=== PATIENT | male | born 1950 | race Hispanic/Latino ===

== ENCOUNTER 2018-09-16 18:27 | Inpatient (IN) | payer MEDICARE, BC ==
[2018-09-16 18:28] VITALS: BMI 28.1
--- NOTE | 2018-09-16 19:06 | C.PDOC ---
History Of Present Illness Patient is a 68 year old male, with a hx of COPD, HTN, HLD, and cardiac disease, who presents to the ED requesting alcohol detox. Patient states that he typically drinks anywhere from a pint to a pint and half a day with some beers. Last drink in cab ride on way over to ED. He states that when he was in detox last fall, but is now drinking heavy again. Patient reports that he sees a doctor regularly. Denies any SI/HI or hallucinations. Time Seen by Provider: 09/16/18 18:45 Chief Complaint (Nursing): Substance Abuse History Per: Patient History/Exam Limitations: no limitations Suicide/Self Injury Attempted (Context): None Modifying Factor(s): Alcohol Associated Symptoms: denies: Suicidal Thoughts, Suicidal Plan Recent travel outside of the [place]: No Additional History Per: Patient Past Medical History Reviewed: Historical Data, Nursing Documentation, Vital Signs Vital Signs: Last Vital Signs Temp 97.4 F L 09/16/18 18:38 Pulse 69 09/16/18 18:38 Resp 18 09/16/18 18:38 BP 133/80 09/16/18 18:38 Pulse Ox 96 09/16/18 18:38 Primary Care Provider: FAMILY PROVIDER,NO - Medical History PMH: Asthma, Bronchitis, COPD, Fractures (L ANKLE FX), HTN, Hypercholesterolemia, Pneumonia, Post Traumatic Stress Disorder, Sleep Apnea (not using CPAP/BIPAP) Denies: [place]'s Disease, Anxiety, Bipolar Disorder, Depression, Personality Disorder, Chronic Kidney Disease, Schizophrenia Surgical History: Appendectomy, Tonsillectomy Denies: Pacemaker - [facility] Procedures ALCOHOL DETOXIFICATION (06/06/06) CONTR CEREBR ARTERIOGRAM (09/21/04) CORONAR ARTERIOGR-2 CATH (08/03/03) ETHMOIDECTOMY (09/16/12) FRONTAL SINUSOTOMY (09/16/12) INJECT ANTIBIOTIC (09/27/04) INJECT/INFUSE NEC (01/13/15) INTRANAS LES DESTRUCTION (09/16/12) INTRANASAL ANTROTOMY (09/16/12) INTRODUCE OF OTH THERAP SUBST INTO RESP TRACT, VIA OPENING (04/12/18) LEFT HEART CARDIAC CATH (08/03/03) LT HEART ANGIOCARDIOGRAM (08/03/03) MAGNETIC RESONANCE IMAGING OF BRAIN AND BRAIN STEM (09/21/04) NEBULIZER THERAPY (09/16/12) SPHENOIDECTOMY (09/16/12) SPHENOIDOTOMY (05/25/03) Family History: States: No Known Family Hx - Social History Hx Tobacco Use: No Hx Alcohol Use: Yes Hx Substance Use: No - Immunization History Hx Tetanus Toxoid Vaccination: No Hx Influenza Vaccination: No Hx Pneumococcal Vaccination: No Review Of Systems Constitutional: Negative for: Fever, Chills Cardiovascular: Negative for: Chest Pain Respiratory: Negative for: Shortness of Breath Psych: Negative for: Suicidal ideation, Other (HI or hallucinations ) Physical Exam - Physical Exam Appears: Non-toxic, No Acute Distress Skin: Warm, Dry Head: Atraumatic, Normacephalic Oral Mucosa: Moist Neck: Normal ROM, Supple Chest: Symmetrical, No Deformity Cardiovascular: Rhythm Regular, No Murmur Respiratory: Normal Breath Sounds, No Rales, No Rhonchi, No Wheezing Gastrointestinal/Abdominal: Soft, No Tenderness Neurological/Psych: Oriented x3 ED Course And Treatment - Laboratory Results Result Diagrams: 09/16/18 19:17 09/16/18 19:17 Lab Interpretation: No Acute Changes O2 Sat by Pulse Oximetry: 96 (on RA ) Pulse Ox Interpretation: Normal Progress Note: Patient is medically cleared for detox admission. Medical Decision Making Medical Decision Making: Plan: Labs UA Disposition - Disposition Disposition: HOSPITALIZED Disposition Time: 21:57 Condition: STABLE - POA Present On Arrival: None - Clinical Impression Clinical Impression: Alcohol dependence - Scribe Statement The provider has reviewed the documentation as recorded by the Jacinda Edmondson All medical record entries made by the Gabbieibjeet were at my direction and personally dictated by me. I have reviewed the chart and agree that the record accurately reflects my personal performance of the history, physical exam, medical decision making, and the department course for this patient. I have also personally directed, reviewed, and agree with the discharge instructions and disposition.
[2018-09-16 19:21] LABS: BASO # 0.1 K/uL (0.0-0.2); BASO % 1.1 % (0.0-2.0); EOS # 0.2 K/uL (0.0-0.7); EOS % 4.1 % (0.0-4.0); LYMPH # 1.6 K/uL (1.0-4.3); LYMPH % 29.3 % (20.0-40.0); MEAN CELL VOLUME 94.5 fL (80.0-94.0); MEAN CORPUSCULAR HEMOGLOBIN 32.3 pg (27.0-31.0); MEAN CORPUSCULAR HGB CONC 34.2 g/dL (33.0-37.0); MEAN PLATELET VOLUME 8.3 fL (7.2-11.7); MONO # 0.4 K/uL (0.0-0.8); MONO % 6.8 % (0.0-10.0); NEUT # 3.2 K/uL (1.8-7.0); NEUT % 58.7 % (50.0-75.0); RBC 4.64 Mil/uL (4.40-5.90); RED CELL DISTRIBUTION WIDTH 15.3 % (11.5-14.5); WHITE BLOOD COUNT 5.5 K/uL (4.8-10.8)
[2018-09-16 19:40] LABS: ALB/GLOB RATIO 1.5 (1.0-2.1); ALBUMIN 4.5 g/dL (3.5-5.0); ALT/SGPT 37 U/L (21-72); AST/SGOT 37 U/L (17-59); BLOOD UREA NITROGEN 17 mg/dL (9-20); CALCIUM 9.1 mg/dl (8.6-10.4); GFR NON-AFRICAN AMERICAN > 60
[2018-09-16 20:10] LABS: SQUAMOUS EPITHIAL < 1 /hpf (0-5); URINE BACTERIA RARE (<OCC); URINE BILIRUBIN NEGATIVE (NEGATIVE); URINE BLOOD TRACE (NEGATIVE); URINE CLARITY Clear (Clear); URINE COLOR Yellow (YELLOW); URINE GLUCOSE (UA) NORMAL (Normal); URINE LEUKOCYTE ESTERASE NEG Leu/uL (Negative); URINE PROTEIN NEGATIVE (NEGATIVE); URINE UROBILINOGEN NORMAL mg/dL (0.2-1.0)
[2018-09-16 20:25] LABS: BARBITURATES, UR NEGATIVE (NEGATIVE); BENZODIAZEPINES, UR NEGATIVE (NEGATIVE); OPIATES, UR NEGATIVE (NEGATIVE); PHENCYCLIDINE, UR NEGATIVE (NEGATIVE)
--- NOTE | 2018-09-16 22:38 | PCM.BM ---
<Davonte Mendoza - Last Filed: 09/16/18 22:36> Treatment Plan Problems - Problems identified on initial assessmt knowledge deficit:alcohol use Date Initiated: 09/16/18 Time Initiated: 22:36 Assessment reference: NA Status: Active denial Date Initiated: 09/16/18 Time Initiated: 22:37 Assessment reference: NA Status: Active defensive coping Date Initiated: 09/16/18 Time Initiated: 22:38 Assessment reference: NA Status: Active Treatment assets and liabiliti Patient Assests: cooperative, cognitively intact Patient Liabilities: substance abuse, medical problems - Milieu Protocol Maintain good personal hygiene: daily Encourage regular showers, daily Remind patient to perform daily oral care, daily Assist patient to perform ADL's Conduct patient checks and document Observation sheet: Q15 minutes Maintain personal safety: every shift Educate patient to report safety concerns to staff, every shift Monitor environment for contraband/sharps Medication safety: Monitor for expected outcome, potential side effects: every shift, Assess barriers to learning: every shift, Assess readiness for medication education: every shift <Geovanny Dong - Last Filed: 09/17/18 12:53> - Diagnosis (1) Alcohol dependence Status: Acute Interventions: 09/17/18 12:53 * Assess 7x/week regarding severity of withdrawal * Educate regarding risks, benefits, side effects and alternatives of medications * Use Motivational Interviewing for abstinence * Use CBT for relapse prevention * Medication management for withdrawal symptoms * Encourage medication assisted treatment *
--- NOTE | 2018-09-17 10:16 | PCM.PSYCH ---
Initial Psychiatric Evaluation - Initial Psychiatric Evaluation Type of Admission: Voluntary Legal Status: Capacity Chief Complaint (in patient's own words): "I am anxious" History of Present Illness and Precipitating Events: Patient is a 68 year-old, male, who is with 5 children. He lives in [place] with his and 17 y/o son. 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 He presents to [facility] to detox from alcohol. He admits to drinking 1 quart of vodka and 2-3 beer per day for the past 30 years. He states that he started drinking around the age of 13 but started drinking heavily in his 40s. He denies use of any illicit or prescribed substances. He is a former smoker, quit in 1999. He has been to detox 4 times, most recently in [place], [place], three months ago. He had been sober for around 10 weeks following detox, but relapsed 2 weeks ago due to issues at home with his son, who is autistic. He also completed a 28-day rehab program in [place] approximately one year ago. His longest length of sobriety was for 2 years from [id number]. He denies any history of seizure but admits to blackouts and tremors. He admits to depressed mood and anxiety, and denies suicidal ideation. He is currently experiencing tremors and nausea, CIWA>12 Past Psychiatric History: depression (undiagnosed) Family Psych History: Dad with alcohol use d/o Past Medical History: HTN, COPD, hyperlipidemia Past Surgical History: denies Current Medications: Active Medications Generic Name Dose Route Start Last Admin Trade Name Freq PRN Reason Stop Dose Admin Hydroxyzine HCl 25 mg 09/16/18 23:41 09/16/18 23:51 Atarax PO 25 mg Q6H PRN Administration Anxiety Pneumococcal Polyvalent Vaccine 0.5 ml 09/20/18 10:00 Pneumovax 23 Vaccine IM 09/20/18 10:01 .ONCE ONE Trazodone HCl 50 mg 09/16/18 23:41 09/16/18 23:51 Desyrel PO 50 mg HS PRN Administration Insomnia Past Psychiatric History - Past Psychiatric History Previous Treatment History: None Pertinent Medical Hx (Current Medical&Sleep Prob, Allergies): Allergies Allergy/AdvReac Type Severity Reaction Status Date / Time methylprednisolone AdvReac Severe ITCHING Verified 04/12/18 23:33 [From Solu-Medrol] aspirin AdvReac COUGH Verified 03/19/17 15:14 ibuprofen [From Motrin] AdvReac COUGH Verified 03/19/17 15:14 Albuterol 0.083% [Albuterol Sulfate 3 Ml] 3 ml IH Q6 PRN 03/19/17 Atorvastatin [Lipitor] 40 mg PO DAILY 03/19/17 Metoprolol Succinate XL [Toprol XL] 25 mg PO DAILY 03/19/17 amLODIPine [Norvasc] 10 mg PO DAILY 03/19/17 Aclidinium Leeper [Tudorza Pressair] 400 mcg IH DAILY 09/16/18 Fluticasone/Vilanterol 100/25 [Breo Ellipta 100-25 MCG INH] 1 puff INH DAILY 09/16/18 Review of Systems - Psychiatric Psychiatric: Abnormal Sleep Pattern, Anhedonia, Anxiety, Depression, Difficulty Concentrating. absent: Hallucinations, Homicidal Ideation, Suicidal Ideation Mental Status Examination - Personal Presentation Personal Presentation: Looks stated age - Affect Affect: Constricted - Motor Activity Motor Activity: Calm - Reliability in Providing Information Reliability in Providing Information: Good - Speech Speech: Organized - Mood Mood: Depressed, Anxious - Formal Thought Process Formal Thought Process: No Impairment - Cognitive Functions Orientation: Person, Place, Situation, Time Sensorium: Alert Attention/Concentration: Attentive Estimate of Intelligence: Average Judgement: Intact, as evidence by: Insight regarding need for hospitalization Memory: Recent intact, as evidence by: Ability to recall events of the day, Remote intact, as evidenced by: Ability to recall historical events - Risk Risk: Withdrawal, Diminished functioning - Strength & Assets Inventory Strength & Assets Inventory: Cooperative - Limitations Limitations: Other DSM 5 DX - DSM 5 DSM 5 Diagnosis: - Alcohol withdrawal - Alcohol use d/o- severe - Depressive d/o unspecified - Recommended/Plan of Treatment Treatment Recommendations and Plan of Treatment: - Taper with Librium - Gabapentin for augmentation - Remeron for dep sxs - He refused naltrexone / vivitrol - Continue home medications - As needed medications - All risks, benefits and alternatives of the medications were discussed with the patient, and the patient agreed and understood. - Attend groups and activities. - Supportive therapy and psychoeducation. - NV for abstinence. - CBT for relapse prevention. - Encourage MAT. - Refer to rehab or IOP, and self-help groups. - Teach healthy lifestyle methods, i.e. diet, exercise, meditation. - NV for smoking cessation - Nicotine patch if needed 34 min
[2018-09-17] MEDS ORDERED: Budesonide 0.25 mg/2 ml Inhal Susp UD INH SCH (11:00)
[2018-09-17] MEDS ORDERED: Arformoterol 15 mcg/2 ml Inh Sol INH SCH (11:00)
[2018-09-17] MEDS: Multiple Vitamins Tab PO SCH (11:16)
[2018-09-17] MEDS ORDERED: Albuterol 0.083% Inhal Sol (2.5 mg/3 mL) UD INH PRN (12:08)
[2018-09-17] MEDS: Metoprolol Succinate 25 mg XL Tab PO SCH (12:54)
[2018-09-17] MEDS: Arformoterol 15 mcg/2 ml Inh Sol INH SCH (20:22)
[2018-09-17] MEDS: Budesonide 0.25 mg/2 ml Inhal Susp UD INH SCH (20:25)
[2018-09-18] MEDS: Arformoterol 15 mcg/2 ml Inh Sol INH SCH ×2 (07:59→19:57)
[2018-09-18] MEDS: Budesonide 0.25 mg/2 ml Inhal Susp UD INH SCH ×2 (07:59→19:57)
[2018-09-18] MEDS: Multiple Vitamins Tab PO SCH (10:10)
[2018-09-18] MEDS: Metoprolol Succinate 25 mg XL Tab PO SCH (10:10)
--- NOTE | 2018-09-18 11:42 | PCM.PYCHPN ---
Psychiatric Progress Note - Psychiatric Progress Note Patient seen today, length of contact: 16 min Patient Chief Complaint: "I am much better Problems Identified/Issues Discussed: The pt is seen, chart reviewed, case discussed with staff. Support and psychoeducation given, CBT and WA used briefly Pt is improving slowly and needs more time, still has ongoing symptoms. No SEs from medications, risks discussed. After care discussed Medication Change: Yes (detox changes daily) Medical Record Reviewed: Yes Mental Status Examination - Cognitive Function Orientation: Person, Place, Situation, Time Memory: Intact Attention: WNL Concentration: Poor Association: WNL Fund of Knowledge: WNL - Mood Mood: Depressed, Anxious - Affect Affect: Constricted - Speech Speech: Appropriate - Formal Thought Process Formal Thought Process: No Impairment - Suicidal Ideation Suicidal Ideation: No - Homicidal Ideation Homicidal Ideation: No Goal/Treatment Plan - Goal/Treatment Plan Need for Continued Stay: Discharge may exacerbated symptoms, Severe functional impairment Progress Toward Problem(s) and Goals/Treatment Plan: - Taper with Librium - Gabapentin for augmentation - Remeron for dep sxs - He refused naltrexone / vivitrol - Continue home medications - As needed medications - All risks, benefits and alternatives of the medications were discussed with the patient, and the patient agreed and understood. - Attend groups and activities. - Supportive therapy and psychoeducation. - WA for abstinence. - CBT for relapse prevention. - Encourage MAT. - Refer to rehab or IOP, and self-help groups. - Teach healthy lifestyle methods, i.e. diet, exercise, meditation. - WA for smoking cessation - Nicotine patch if needed
[2018-09-19] MEDS: Arformoterol 15 mcg/2 ml Inh Sol INH SCH ×3 (08:00→20:20)
[2018-09-19] MEDS: Budesonide 0.25 mg/2 ml Inhal Susp UD INH SCH ×3 (08:01→20:20)
[2018-09-19] MEDS: Multiple Vitamins Tab PO SCH (10:14)
[2018-09-19] MEDS: Metoprolol Succinate 25 mg XL Tab PO SCH ×2 (10:23→10:24)
--- NOTE | 2018-09-19 11:34 | PCM.PYCHPN ---
Psychiatric Progress Note - Psychiatric Progress Note Patient seen today, length of contact: 16 min Patient Chief Complaint: I am feeling better Problems Identified/Issues Discussed: Patient seen and evaluated, chart reviewed and discussed with the nurse. Patient reports anxiety and reports withdrawal symptoms including, cramps, anxiety and headaches. Patient reports irritability but denies any suicidal ideation or homicidal ideation. He denies any auditory or visual hallucinations. He is tolerating the withdrawal medications and denies any side effects. Supportive therapy and psychoeducation were given. Medication Change: Yes (detox changes daily) Medical Record Reviewed: Yes Mental Status Examination - Cognitive Function Orientation: Person, Place, Situation, Time Memory: Intact Attention: WNL Concentration: Poor Association: WNL Fund of Knowledge: WNL - Mood Mood: Depressed, Anxious - Affect Affect: Constricted - Speech Speech: Appropriate - Formal Thought Process Formal Thought Process: No Impairment - Suicidal Ideation Suicidal Ideation: No - Homicidal Ideation Homicidal Ideation: No Goal/Treatment Plan - Goal/Treatment Plan Need for Continued Stay: Discharge may exacerbated symptoms, Severe functional impairment Progress Toward Problem(s) and Goals/Treatment Plan: - Alcohol withdrawal - Alcohol use d/o- severe - Depressive d/o unspecified - Taper with Librium - Gabapentin for augmentation - Remeron for dep sxs - He refused naltrexone / vivitrol - Continue home medications - As needed medications - All risks, benefits and alternatives of the medications were discussed with the patient, and the patient agreed and understood. - Attend groups and activities. - Supportive therapy and psychoeducation. - OK for abstinence. - CBT for relapse prevention. - Encourage MAT. - Refer to rehab or IOP, and self-help groups. - Teach healthy lifestyle methods, i.e. diet, exercise, meditation. - OK for smoking cessation - Nicotine patch if needed
[2018-09-20 05:54] VITALS: O2SAT 96
[2018-09-20] MEDS: Budesonide 0.25 mg/2 ml Inhal Susp UD INH SCH (07:46)
[2018-09-20] MEDS: Arformoterol 15 mcg/2 ml Inh Sol INH SCH (07:46)
[2018-09-20 09:10] VITALS: BP 119/78; PULSE 63; RESP 18; TEMP 98.3
[2018-09-20] MEDS: Multiple Vitamins Tab PO SCH (09:10)
[2018-09-20] MEDS: Metoprolol Succinate 25 mg XL Tab PO SCH (09:10)
[2018-09-20] MEDS ORDERED: Pneumococcal 23-Valent Vaccine IM ONE (10:00)
--- NOTE | 2018-09-20 11:36 | PCM.PYCHDC ---
Mental Status Examination - Mental Status Examination Orientation: Person, Place, Situation, Time Memory: Intact Mood: Neutral Affect: Constricted Speech: Soft Attention: WNL Concentration: WNL Association: WNL Fund of Knowledge: WNL Formal Thought Process: No Impairment Suicidal Ideation: No Current Homicidal Ideation?: No Discharge Summary - Discharge Note Reason for Hospitalization: Patient is a 68 year-old, male, who is with 5 children. He lives in [place] with his and 17 y/o son. 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 He presents to [facility] to detox from alcohol. He admits to drinking 1 quart of vodka and 2-3 beer per day for the past 30 years. He states that he started drinking around the age of 13 but started drinking heavily in his 40s. He denies use of any illicit or prescribed substances. He is a former smoker, quit in 1999. He has been to detox 4 times, most recently in [place], [place], three months ago. He had been sober for around 10 weeks following detox, but relapsed 2 weeks ago due to issues at home with his son, who is autistic. He also completed a 28-day rehab program in [place] approximately one year ago. His longest length of sobriety was for 2 years from [id number]. He denies any history of seizure but admits to blackouts and tremors. He admits to depressed mood and anxiety, and denies suicidal ideation. He is currently experiencing tremors and nausea, CIWA>12 Past Psychiatric History: depression (undiagnosed) Family Psych History: Dad with alcohol use d/o Past Medical History: HTN, COPD, hyperlipidemia Past Surgical History: denies Consultations:: List each consultation separately and include: 1. Reason for request. 2. Findings. 3. Follow-up Summary of Hospital Course include:: 1. Description of specific treatment plan utilized for patients during their course of treatmen. 2. Summarize the time- course for resolution of acute symptoms and/or regressed behaviors. 3. Describe issues identified and worked on during hospitalization. 4. Describe medication utilized. 5. Describe medical problems identified and treated. 6. Reassessment of suicide risk - Final Diagnosis (DSM 5) Condition upon Discharge: STABLE DSM 5: - Alcohol withdrawal - Alcohol use d/o- severe - Depressive d/o unspecified Disposition: HOME/ ROUTINE
== END 2018-09-20 14:00 | disposition home or self-care (01) | DRG 897 ==
LOC: C.ER 18:27 → C.7D 21:57 → OBSVTOIN 09-17 11:39
PROVIDERS: ADMIT Psychiatry & Neurology Psychiatry; ATTEND Psychiatry & Neurology Psychiatry
PROC: GZ56ZZZ Individual Psychotherapy, Supportive (ICD-10-PCS; principal; 2018-09-17)
DX: F10.230 Alcohol dependence with withdrawal, uncomplicated (principal); Y90.8 Blood alcohol level of 240 mg/100 ml or more; G47.30 Sleep apnea, unspecified; I10 Essential (primary) hypertension; J44.9 Chronic obstructive pulmonary disease, unspecified; F32.9 Major depressive disorder, single episode, unspecified; E78.5 Hyperlipidemia, unspecified; F43.10 Post-traumatic stress disorder, unspecified; Z87.891 Personal history of nicotine dependence